=== PATIENT | female | born 1990 | race Caucasian/White ===

== ENCOUNTER 2022-05-21 11:58 | Emergency (ER) | payer OTHER, SELFPAY ==
--- NOTE | 2022-05-21 12:06 | ED.GENADULT ---
HPI - General Adult General Chief complaint: Overdose Stated complaint: Overdoes Time Seen by Provider: 05/21/22 12:06 Source: patient and EMS Mode of arrival: EMS Limitations: no limitations History of Present Illness HPI narrative: Patient is a 32 year old assigned female at with a history of opioid abuse presenting to the emergency department today after an accidental overdose. Patient states that she used heroin today and was given narcan. Patient states that she does not want help and she does not want to be evaluated. Patient denies any dizziness, lightheadedness, abdominal pain, nausea, vomiting, fever, chills, blurry vision, double vision, loss of vision, chest pain, difficulty breathing, shortness of breath, back pain, night sweats, pain with urination, increased urinary frequency, increased urinary urgency, blood in her urine or stool, syncope or a near syncopal episode, recent trauma or falls, bowel incontinence, bladder incontinence, bowel retention, bladder retention, or any other complaints at this time. Onset (ago): minute(s) Severity: mild Relieving factors: none Exacerbating factors: none Associated symptoms: denies other symptoms Treatments prior to arrival: none Related Data Allergies Allergy/AdvReac Type Severity Reaction Status Date / Time No Known Allergies Allergy Unverified 02/08/20 19:30 [No Known Allergies*] Review of Systems Constitutional: Constitutional: Reports no additional constitutional complaints, Denies chills, Denies fever(s) and Denies night sweats Eyes: Eyes: Reports no additional eye complaints, Denies blurry vision, Denies change in vision, Denies diplopia, Denies eye discharge, Denies loss of vision and Denies eye pain ENT: Denies dizziness Cardiovascular: Cardiovascular: Reports no additional cardiovascular complaints, Denies chest pain, Denies lightheadedness, Denies Loss of Consciousness and Denies dyspnea Respiratory: Respiratory: Reports no additional respiratory complaints and Denies dyspnea Gastrointestinal: Gastrointestinal: Reports no additional gastrointestinal complaints, Denies abdominal pain, Denies melena, Denies hematochezia, Denies change in bowel habits and Denies change in stool character Genitourinary: Genitourinary: Denies hematuria, Denies urinary frequency, Denies dysuria, Denies urinary incontinence, Denies urinary hesitancy and Denies urinary urgency Musculoskeletal: Musculoskeletal: Reports no additional musculoskeletal complaints, Denies numbness and Denies tingling Neurologic: Denies dizziness, Denies loss of vision, Denies numbness and Denies tingling Psychiatric: Psychiatric: Reports no additional psychiatric complaints Endocrine: Endocrine: Reports no additional endocrine complaints Hematologic/Lymphatic: Hematologic/Lymphatic: Reports no additional hematologic/lymphatic complaints Allergic/Immunologic: Allergic/Immunologic: Reports no additional allergic/immunologic complaints PMFSH Past Medical History Attestation statement: The following information was validated with the patient. Source: old records reviewed and nursing notes reviewed Social History Social History Advance Directives: No Advance Directives Information Provided: No Physical Exam ED Vital Signs: Vital Signs - 24 hr 05/21/22 12:09 05/21/22 13:54 Temperature 97.0 F 99.4 F Pulse Rate 90 90 Respiratory Rate 16 12 Blood Pressure 119/73 113/61 Pulse Oximetry 99 92 Oxygen Delivery Method Room Air Room Air BMI result Body Mass Index 24.9 Const General: cooperative, no acute distress, alert and awake Nutritional Appearance: well nourished Orientation/consciousness: patient oriented x3 Limitations: no limitations HENMT Head: Yes normal to inspection and Yes atraumatic Ears: hearing grossly normal bilaterally and external ears normal General nose exam: Normal external nose present, no nasal discharge noted and no epistaxis Face and sinus: Yes normal facial exam, No abrasion and No laceration Mouth: Normal oral and palatal mucosa present, no drooling and no muffled voice Eyes General: appearance normal, both eyes and all related structures Periorbital: periorbital findings normal Eyelids: Yes eyelids normal Conjunctivae: conjunctivae normal Pupils: Equal, round and reactive pupils present EOM: EOMs intact bilaterally Neck Neck: Yes normal visual inspection, Yes full ROM and Yes no lymphadenopathy Chest Chest palpation & inspection: normal inspection of the chest Resp Effort & Inspection: normal respiratory effort and able to speak in complete sentences Auscultation: clear to auscultation bilaterally Cardio Rate: regular rate Rhythm: regular rhythm GI Inspection: Yes normal to inspection Palpation (GI): Soft to palpation, not firm, nontender, no guarding and not rigid Neuro General: patient oriented x3 and moves all extremities Cranial nerves: Yes Equal, round and reactive pupils present Cognition (Neuro): normal cognition Motor exam (neuro): 5/5 motor strength present throughout Sensory Exam: Normal double simultaneous stimulation for sensation Coordination: [id number] test normal Extrem General: Yes normal to inspection, Yes full ROM and Yes capillary refill normal Psych Appearance: grossly normal Mental Status: mental status grossly normal Affect: normal affect Attitude: cooperative Thought process: Normal thought process present Thought content: Normal thought content present Insight: Good insight present (Psych) Medical Decision Making Medical Decision Making MDM Narrative: Patient is a 32 year old assigned female at with a history of opioid use presenting to the emergency department today after an accidental overdose. Patient's physical exam was unremarkable. Patient refused CARE team evaluation or work up. Patient did accept take home narcan. I explained my physical exam findings to the patient. I answered all questions asked by the patient. I stressed the importance of the patient taking her medication as prescribed. I stressed the importance of the patient following up with her primary care provider. I stressed the importance of the patient returning to the emergency department immediately if her symptoms were to worsen or if she were to develop any dizziness, shortness of breath, difficulty breathing, chest pain, blurry vision, loss of vision, nausea, vomiting, abdominal pain, fever, chills, back pain, or any other complaints. Patient verbalized agreement and understanding with this treatment plan and discharge. Differential Diagnosis Differential Diagnoses: The differential diagnosis associated with the presentation includes accidental overdose, opiate abuse Independent Historian Clinical information obtained from an independent historian. History obtained from or confirmed by: EMS Discharge Plan Discharge Clinical Impression: Opiate misuse Patient Disposition: Home, Self-Care Instructions: Opioid Use Disorder (ED) Additional Instructions: Follow up with your primary care provider. Return to the emergency department immediately if your symptoms worsen or if you develop any dizziness, shortness of breath, difficulty breathing, chest pain, blurry vision, loss of vision, nausea, vomiting, abdominal pain, fever, chills, back pain, or any other complaints. Referrals: [facility] Family Medicine [Provider Group] (Call to establish and follow up with a primary care provider. If you already have a primary care provider, please follow up with them. ) [facility] Primary [facility] [Provider Group] (Call to establish and follow up with a primary care provider. If you already have a primary care provider, please follow up with them. ) [facility] Primary [facility] [Provider Group] (Call to establish and follow up with a primary care provider. If you already have a primary care provider, please follow up with them. ) Interventions: [place]-Suicide Risk Severity Scale Last Done: 05/21/22 14:24 Discharge Date/Time: 05/21/22 14:25 Print Language: Micronesian
[2022-05-21 12:09] VITALS: BP 119/73; BP 135/93; PULSE 102; PULSE 90; RESP 16; TEMP 36.1; O2SAT 99; BMI 24.9
--- NOTE | 2022-05-21 12:36 | HO.SUDE ---
Attempted to meet with pt to discuss substance use and complete SUDE. Pt declines engaging, educated regarding services available, declines all with grunts. Pt encouraged to reach out to t/w with questions or concerns. RN and provider aware.
[2022-05-21 13:54] VITALS: BP 113/61; PULSE 90; RESP 12; TEMP 37.4; O2SAT 92
== END 2022-05-21 14:25 | disposition home or self-care (01) ==
PROVIDERS: Emergency Provider Student in an Organized Health Care Education/Training Program
DX: F11.10 Opioid abuse, uncomplicated (principal); T40.1X1A Poisoning by heroin, accidental (unintentional), initial encounter; Y92.9 Unspecified place or not applicable
CPT/HCPCS: 99283

== ENCOUNTER 2024-04-13 13:22 | Emergency (ER) | payer SELFPAY ==
[2024-04-13 13:26] VITALS: BP 138/54; PULSE 99; O2SAT 100
[2024-04-13 13:29] VITALS: BP 121/81; PULSE 74; RESP 18; TEMP 36.9; O2SAT 100; BMI 21.9
--- NOTE | 2024-04-13 13:40 | ED.GENADULT ---
HPI - General Adult General Chief complaint: Overdose Stated complaint: OD, 12MG OF NARCAN GIVEN PER EMS Time Seen by Provider: 04/13/24 13:26 Source: patient, RN notes reviewed and old records reviewed Mode of arrival: EMS Limitations: no limitations History of Present Illness ED Provider: Justa HPI narrative: 34-year-old female with past medical history significant for substance abuse presents for evaluation of I guess I overdosed. Patient reports that she injects cocaine and heroin daily. She reports using 2 bags of heroin she was apparently found unresponsive in the bathroom at a [facility] center she was given 12 mg of nasal Narcan and was bags temporarily. Apparently EMS found the patient to be unresponsive on their arrival but the patient responded when she was transferred to the stretcher the patient denies any intent to self-harm or intentional overdose. She has no complaints or concerns, denies any pain. She has no interest in detox Related Data Allergies Allergy/AdvReac Type Severity Reaction Status Date / Time No Known Allergies Allergy Verified 04/13/24 13:30 [No Known Allergies*] Review of Systems Constitutional: Constitutional: Denies chills, Denies fever(s), Denies frequent falls and Denies headache(s) Eyes: Eyes: Denies blurry vision ENT: Denies vertigo, Denies dizziness and Denies headache(s) Cardiovascular: Cardiovascular: Denies chest pain and Denies dyspnea Respiratory: Respiratory: Denies cough and Denies dyspnea Gastrointestinal: Gastrointestinal: Denies abdominal pain, Denies nausea and Denies vomiting Musculoskeletal: Musculoskeletal: Denies back pain Integumentary/Breasts: Skin/Breast: Denies rash Neurologic: Denies vertigo, Denies dizziness, Denies frequent falls and Denies headache(s) [facility] Social History Social History Advance Directives: No Advance Directives Information Provided: Yes Do you have a plan to hurt others: No Plan Physical Exam ED Vital Signs: Vital Signs - 24 hr 04/13/24 13:29 04/13/24 14:38 04/13/24 17:09 Temperature 98.4 F 98.9 F 97.8 F Pulse Rate 74 81 62 Respiratory Rate 18 20 16 Blood Pressure 121/81 111/64 Pulse Oximetry 100 98 96 Oxygen Delivery Method Room Air Room Air Room Air BMI result Body Mass Index 21.9 Const General: healthy appearing, comfortable, no acute distress, alert and awake Nutritional Appearance: well nourished Orientation/consciousness: patient oriented x3 HENMT Head: Yes normocephalic and Yes atraumatic Eyes Eyelids: Yes eyelids normal Conjunctivae: conjunctivae normal Sclerae: sclerae normal Corneas: corneas normal Pupils: Equal, round and reactive pupils present EOM: EOMs intact bilaterally Neck Neck: Yes full ROM Resp Effort & Inspection: normal respiratory effort, able to speak in complete sentences and not labored Cardio Rate: regular rate Rhythm: regular rhythm Skin General skin exam: elasticity normal Neuro General: patient oriented x3 Cranial nerves: Yes Equal, round and reactive pupils present and Yes Bilaterally intact EOM present Cognition (Neuro): normal cognition Extrem Other: Moving all extremities well without any obvious deformities Course Reevaluation(s) Reevaluation #1: patient awake, ambulating with a steady, even gait. She is requesting time to sleep. the patient reports that she is homeless plan to continue observation Time: 16:07 Reevaluation #2: patient's vital signs have remained stable, she has been sleeping peacefully but does wake up, remains alert and oriented Time: 18:28 Medical Decision Making Medical Decision Making MDM Narrative: 34-year-old male presents for evaluation of an accidental overdose. She arrives awake, alert and oriented with stable vital signs. She admits to using IV opiates. Plan for observation and cardiac monitoring. I do not see any indication for emergent workup at this time as the patient is open admitting to IV drug abuse and responded to Narcan. Plan for close monitoring and re-evaluation when sober Differential Diagnosis Differential Diagnoses: The differential diagnosis associated with the presentation includes substance abuse Opiate abuse IV drug abuse Accidental overdose Discharge Plan Discharge Clinical Impression: Drug overdose Patient Disposition: Home, Self-Care Instructions: Adult Overdose (ED) Additional Instructions: avoid illicit substances Print Language: Icelandic
--- NOTE | 2024-04-13 13:46 | MHC.EDTECH ---
Belongings are in the closet by the POD on shelf 2.
[2024-04-13 14:38] VITALS: PULSE 81; RESP 20; TEMP 37.2; O2SAT 98
[2024-04-13 17:09] VITALS: BP 111/64; PULSE 62; RESP 16; TEMP 36.6; O2SAT 96
[2024-04-13 18:40] VITALS: BP 107/67; PULSE 67; RESP 16; TEMP 36.8; O2SAT 96
--- NOTE | 2024-04-13 19:00 | PC.NURSE ---
Report taken from Yareli RN assumed care of pt at this time. Per previous RN attempted to DC pt, pt stated she wanted to sleep more. Resting on stretcher, eyes closed, VSS. Awaiting wakefulness for dc home.
[2024-04-13 20:32] VITALS: BP 107/67; PULSE 67; RESP 16; TEMP 36.8; O2SAT 96
== END 2024-04-13 20:33 | disposition home or self-care (01) ==
PROVIDERS: Emergency Provider Emergency Medicine
DX: T40.1X1A Poisoning by heroin, accidental (unintentional), initial encounter (principal); T40.5X1A Poisoning by cocaine, accidental (unintentional), initial encounter; Y92.89 Other specified places as the place of occurrence of the external cause; F11.10 Opioid abuse, uncomplicated
CPT/HCPCS: 99284